=== PATIENT | female | born 1995 | race Caucasian/White ===

== ENCOUNTER 2017-06-12 06:30 | Emergency (ER) | payer OTHER ==
[~2017-06-12] VITALS: Ht 162.6 cm; Wt 68.4 kg
[2017-06-12 06:36] VITALS: BP 148/96; TEMP 36.7; Ht 162.6 cm; Wt 68.4 kg
[2017-06-12] MEDS ORDERED: EFF/375 PO (06:45)
[2017-06-12] MEDS ORDERED: LIDOCAINE/EPINEPH/TETRACAINE 1 EA SYR EXT STA (06:58)
--- NOTE | 2017-06-12 07:13 | EMERGENCY ROOM VISIT NOTE ---
History Report prepared by Zhou: Keith Saldana Under the Supervision of: Dr. Jimmie Recinos D.O. First contact with patient: 06:47 Chief Complaint: BITE Stated Complaint: CUT ON FINGER-SEE FAT STICKING OUT History of Present Illness The patient is a 22 year old female who presents to the Emergency Room with complaints of a rat bite to her left index finger that occurred 1 hour ago. Early this morning, the patient's pet rat of 2 years bit her finger, causing bleeding and exposing some fat. Afterward, she washed out the area. She informed us that rats do not get immunized. Her Tetanus immunization is up to date. She is having some mild left index finger pain rated a 2/10 in severity. She is left hand dominant. Pt denies headache, change in vision, fevers, chest pain, shortness of breath, nausea, vomiting, diarrhea, pain with urination, and melena. Source of History: patient Onset: 1 hour ago Position: finger(s) (left index) Symptom Intensity: mild Quality: other (Rat Bite) Timing: constant Note: She is having some left index finger pain. Review of Systems See HPI for pertinent positives & negatives. A total of 6 systems reviewed and were otherwise negative. Past Medical & Surgical Medical Problems: (1) No Known Active Medical Problems Family History Hyperlipidemia Hypertension Social History Smoking Status: Never Smoker Smokeless Tobacco Use: No Alcohol Use: occasionally Drug Use: none Occupation Status: unemployed Current/Historical Medications Scheduled Venlafaxine Hcl (Effexor), 37.5 MG PO DAILY Allergies Coded Allergies: Sulfa Antibiotics (Verified Allergy, Intermediate, rash, 06/12/17) Physical Exam Vital Signs Date Time Temp Pulse Resp B/P (MAP) Pulse Ox O2 Delivery O2 Flow Rate FiO2 06/12/17 07:42 86 16 99 06/12/17 06:36 36.7 88 18 148/96 99 Room Air Physical Exam GENERAL: Sitting up in bed, alert, well appearing, well nourished, no distress, non-toxic OROPHARYNX: Mucous membranes are moist LUNGS: Clear to auscultation. Normal chest wall mechanics HEART: no murmurs, S1 normal and S2 normal UPPER EXTREMITIES: To the left second digit on the palmar aspect just proximal to the GIP there is a half a centimeter laceration with protruding fat and venous oozing, good capillary refill, sensation intact, full ROM LOWER EXTREMITIES: No pitting edema. NEURO EXAM: Normal sensorium. Medical Decision & Procedures ER Provider Diagnostic Interpretation: Radiology results as stated below per my review and the radiologist's interpretation: LEFT INDEX FINGER 3 VIEWS CLINICAL HISTORY: Finger pain status post trauma COMPARISON: None. DISCUSSION: No acute fractures or dislocations are visualized. No foreign bodies are visualized. There is a soft tissue injury centered on the volar soft tissues at the middle phalangeal level IMPRESSION: 1. Soft tissue injury 2. No fractures or dislocations identified Electronically signed by: Benjamin Beatty M.D. 06/12/2017 7:19 AM Dictated Date/Time: 06/12/2017 7:18 AM Medications Administered Medications (Trade) Dose Ordered Sig/Chandni Route Start Time Stop Time Status Last Admin Dose Admin Tetracaine/ Epinephrine/ Lidocaine (L.e.t. Gel 4%/ 1:100/0.5%) 1 ea NOW STAT EXT 06/12/17 06:58 06/12/17 06:59 DC 06/12/17 06:58 1 EA Procedure Location: Palmar aspect of the left second digit, proximal to the GIP Total length: 1 cm Complexity: Simple Verbal consent was obtained after the risks and benefits were explained, including but not limited to bleeding, scarring, infection, pain, and bone/joint /nerve damage. At this time, the risks of the procedure are less than the risks of NOT performing the procedure. A time out was taken and the correct patient and site identified. The skin was prepped with betadine. The target area was anesthetized with 1.5 ml of 1% lidocaine with epinephrine. Copious irrigation was performed using normal saline. The skin was re-prepped with betadine and a sterile field set. The wound was explored for foreign bodies and none found. Examination revealed no injury to deep structures such as tendons, bone, or significant blood vessels. Debridement was not performed. The wound edges were approximated using 1, 5-0 simple interrupted nylon sutures. Hemostasis and excellent approximation was achieved. Antibacterial ointment and a sterile dressing applied. Detailed wound care instructions and signs and symptoms of infection reviewed with the patient. No complications and the patient tolerated the procedure well. ED Course ED COURSE: Vital signs were reviewed and showed situational hypertension The patients medical record was reviewed The above diagnostic studies were performed and reviewed. ED treatments and interventions as stated above. 0647: The patient was evaluated in room A10. A complete history and physical examination was performed. 0658: Ordered Tetracaine/Epinephrine/Lidocaine 1 ea EXT 0715: I performed a laceration repair procedure at this time. Please see the procedure note for further information. 0745: Upon reevaluation, the patient is resting.I discussed my findings with the patient and she understands and agrees with the treatment plan. Based on the patients age, coexisting illnesses, exam and lab findings the decision to treat as an outpatient was made. The patient remained stable while under my care. The patient appeared well at the time of discharge. Medical Decision Differential diagnosis: Etiologies such as cellulitis, abscess, MRSA infection, DVT, necrotizing fasciitis, dermatitis, drug eruption, as well as others were entertained. Patient is a 22-year-old female who presents the ER who is [id number] that was bitten by her rat who has been quarantined/caged for the past 2 years. Tetanus was updated within the past 1-2 years. Patient has no other complaints. Does have small laceration on her palmar aspect of her left second finger. This was repaired with a 5.0 stitch. X-ray shows no obvious foreign body. Patient was instructed to follow-up with PCP in 7 days to have suture removed. Discussed with Pt concerning signs and symptoms to watch out for. Pt was instructed to follow up with their PCP and discussed with the patient their option to return to the ED at anytime for persistent or worsening symptoms. The appropriate anticipatory guidance and out-patient management, including indications for return to the emergency department, were explained at length to the patient and understood. Medication Reconcilliation Current Medication List: was personally reviewed by me Blood Pressure Screening Patient's blood pressure: Elevated blood pressure Blood pressure disposition: Elevated BP felt to be situational Impression Primary Impression: Bite by animal Additional Impression: Laceration Scribe Attestation The scribe's documentation has been prepared under my direction and personally reviewed by me in its entirety. I confirm that the note above accurately reflects all work, treatment, procedures, and medical decision making performed by me. Departure Information Dispostion Home / Self-Care Referrals No Doctor, Assigned (PCP) Forms HOME CARE DOCUMENTATION FORM, IMPORTANT VISIT INFORMATION Patient Instructions My [facility] Additional Instructions Please follow up with your primary care doctor with in the next 24 hours. Any worsening of your symptoms, please return to the ED immediately. This includes any fevers greater than 100.4, any surrounding redness/erythema, purulent drainage, worsening pain, or any other concerning signs or symptoms from your standpoint. Please have suture removed in 5-7 days. Problem Qualifiers
[2017-06-12] MEDS ORDERED: LIDO/EPINEPHRINE/SOD BICARB 20 ML VIAL INFIL ONE (07:18)
--- NOTE | 2017-06-12 07:20 | DIAGNOSTIC IMAGING REPORT ---
LEFT INDEX FINGER 3 VIEWS CLINICAL HISTORY: Finger pain status post trauma COMPARISON: None. DISCUSSION: No acute fractures or dislocations are visualized. No foreign bodies are visualized. There is a soft tissue injury centered on the volar soft tissues at the middle phalangeal level IMPRESSION: 1. Soft tissue injury 2. No fractures or dislocations identified Electronically signed by: Benjamin Beatty M.D. 06/12/2017 7:19 AM Dictated Date/Time: 06/12/2017 7:18 AM
[2017-06-12 07:42] VITALS: PULSE 86; O2SAT 99
== END 2017-06-12 07:43 | disposition home or self-care (01) ==
LOC: C.EDB 06:32 → C.EDA 07:43
DX: S61.251A Open bite of left index finger without damage to nail, initial encounter (principal); W53.11XA Bitten by rat, initial encounter; Z82.49 Family history of ischemic heart disease and other diseases of the circulatory system; Z88.1 Allergy status to other antibiotic agents